=== PATIENT | female | born 1950 | race Two or more races ===

== ENCOUNTER 2019-10-28 08:33 | Inpatient (IN) | payer OTHER, MEDICAID ==
[~2019-10-28] VITALS: Ht 154.9 cm; Wt 86.1 kg
[2019-10-28] MEDS ORDERED: cloNIDine HCL 0.1 MG TAB PO ONE (09:00)
[2019-10-28] MEDS ORDERED: NITROGLYCERIN 50MG/250ML 250 ML IV ONE (09:29)
[2019-10-28 09:54] LABS: Basophils # (auto) 0 10 ^3/uL (0-0.2); Basophils % (auto) 0.4 % (0.0-2.0); Eosinophils # (auto) 0 10 ^3/uL (0-0.8); Eosinophils % (auto) 0.7 % (0.0-7.0); Hemoglobin 16.1 g/dL (12.2-16.2); Lymphocytes # (auto) 1.4 10 ^3/uL (0.4-5.4); Lymphocytes % (auto) 26.7 % (10.0-50.0); Mean Corpuscular Hemoglobin 30.9 pg (28.0-32.0); Mean Corpuscular Hgb Conc. 33.5 g/dL (32.0-36.0); Mean Corpuscular Volume 92.3 fL (80.0-100.0); Monocytes # (auto) 0.4 10 ^3/uL (0-1.3); Monocytes % (auto) 6.8 % (0.0-12.0); Neutrophils # (auto) 3.5 10 ^3/uL (1.6-8.6); Neutrophils % (auto) 65.4 % (37.0-80.0); Nucleated Red Blood Cells % 0.2 %; Platelet Count (auto) 173 10^3/uL (140-450); Red Blood Cells 5.21 10^6/uL (4.0-5.20); Red Cell Distribution Width 13.6 % (11.8-14.3); White Blood Cell 5.4 10^3/uL (4.4-10.8)
[2019-10-28 10:08] LABS: Albumin 4.3 g/dL (3.4-5.0); Calcium 9.2 mg/dL (8.5-10.1); Potassium 3.6 mmol/L (3.5-5.1)
[2019-10-28 10:10] LABS: INR 1.02 (0.9-1.15); Partial Thromboplastin Time 27.9 sec (23.64-32.05)
[2019-10-28 10:15] LABS: BUN/Creatinine Ratio 14.9; Bilirubin, Total 0.5 mg/dL (0.2-1.0)
[2019-10-28] MEDS ORDERED: MORPHINE SULF INJ 2 MG/ML SYRINGE 1ML IV PRN (11:00)
[2019-10-28] MEDS ORDERED: NITROGLYCERIN 0.4 MG SL TAB SL PRN (11:00)
[2019-10-28] MEDS ORDERED: ACETAMINOPHEN 500 MG TAB PO PRN (11:15)
[2019-10-28] MEDS ORDERED: hydrALAZINE HCL 20 MG/ML VL IV PRN ×2 (11:15)
[2019-10-28] MEDS ORDERED: LACTULOSE 20Gm/30ML SOLN PO PRN (11:15)
[2019-10-28] MEDS ORDERED: METO25TA5 PO (12:47)
[2019-10-28] MEDS ORDERED: MELO1TAB73 PO (12:47)
[2019-10-28] MEDS ORDERED: LISI-648 PO (12:47)
[2019-10-28] MEDS ORDERED: TRAZ50TA2 PO (12:47)
[2019-10-28] MEDS ORDERED: BACL10TA PO (12:47)
[2019-10-28] MEDS ORDERED: OME20T PO (12:47)
[2019-10-28] MEDS ORDERED: LEVO125T7 PO (12:47)
[2019-10-28] MEDS ORDERED: ATOR10TA52 PO (12:47)
[2019-10-28] MEDS ORDERED: HYDR-3682 PO (12:47)
[2019-10-28] MEDS ORDERED: CHOL1TAB16 PO (13:10)
[2019-10-28] MEDS ORDERED: SODIUM CHLORIDE 0.9% 500 ML IV ONE (15:45)
[2019-10-28] MEDS: SODIUM CHLORIDE 0.9% 1,000 ML IV SCH (15:55)
--- NOTE | 2019-10-28 17:25 | NUR ---
Telemetry admit from [facility] admitted to Telemetry unit after SBAR received. Patient oriented to BLU HEATON, primary RN, unit, room, bed, and unit policies regarding patient care and visiting hours. Patient now on continuous telemetry monitoring, tele box # [29 ] and telemetry reading on arrival to unit is [SB 46]. Patient is alert and awake laying in bed in semi-fowlers position. Pt is on room air with even and unlabored respirations. Bed is in lowest position, wheels are locked, side rails up x2, and call light is within reach. Pt is still C/O weakness, occasionally dizziness, and blurry vision in left eye. Current neuro consult pending. Pt weighed by bed scale and encouraged to call if they need something. All questions and concerns addressed, patient verbalized understanding. Will continue to monitor q1h and PRN.
[2019-10-28 17:38] VITALS: BP 117/61
[2019-10-28] MEDS: traMADol HCL 50 MG TAB PO PRN (17:57)
--- NOTE | 2019-10-28 19:15 | NUR ---
Report Given Patient awake and alert. No S/S of distress/SOB or pain at this time. Care endorsed to ELLEN Melgoza RN.
--- NOTE | 2019-10-28 19:25 | NUR ---
Opening Shift Note Assumed care of patient, awake and alert X4. No S/S of distress/SOB or pain reported at this time. IV patent and benign to left FA, Instructed on POC and to call for assist PRN, call light within reach, bed alarm activated, pt instructed to call for help when ambulating to bathroom, to assess gait, pt verbalized understanding, will continue to monitor for changes Q1hr and PRN.
[2019-10-28 19:37] LABS: Magnesium 2.3 mg/dL (1.6-2.6)
[2019-10-28 20:00] VITALS: BP 127/68
[2019-10-28] MEDS ORDERED: ZOLPIDEM TARTRATE 5 MG TAB PO PRN (21:30)
[2019-10-28] MEDS ORDERED: LORazepam 2MG/ML-1ML VIAL IV PRN (21:30)
[2019-10-28 22:00] VITALS: BP 127/68
[2019-10-28] MEDS ORDERED: PRAMIPEXOLE DIHYDROCHLORIDE MO 0.25 MG TAB PO SCH (22:00)
[2019-10-28] MEDS ORDERED: ATORVASTATIN 20 MG TAB PO SCH (22:00)
[2019-10-28] MEDS: ATORVASTATIN 20 MG TAB PO SCH (22:00)
[2019-10-28 22:37] LABS: % Iron Saturation 40.1 % (15-50)
--- NOTE | 2019-10-28 23:15 | NUR ---
AMBULATION PT ASSISTED TO BATHROOM, MINIMAL ASSIST PROVIDED, GAIT SLIGHTLY UNSTEADY, ASSISTED BACK TO BED, BED ALARM ACTIVATED AND CALL LIGHT WITHIN REACH, CONT CARE
--- NOTE | 2019-10-28 23:36 | NUR ---
Respiratory note: PT TOOK OFF CPAP AND SAID THAT SHE REFUSED TO WEAR IT THAT SHE CAN NOT SLEEP. PT IS ON ROOM AIR SPO2 96%. NO S/S OF SOB OR RESPIRATORY DISTRESS. WILL CONTINUE TO MONITOR
[2019-10-29] MEDS ORDERED: TEMAZEPAM 15 MG CAP PO ONE (01:00)
[2019-10-29] MEDS: ATORVASTATIN 20 MG TAB PO SCH ×2 (01:31→01:32)
[2019-10-29] MEDS: SODIUM CHLORIDE 0.9% 1,000 ML IV SCH ×2 (01:45→10:56)
[2019-10-29] MEDS: ASPIRIN-DIPYRIDAMOLE (25/200MG) CAPSULE PO SCH ×2 (01:52→10:00)
--- NOTE | 2019-10-29 03:02 | NUR ---
PT ROUNDS PT CURRENTLY SLEEPING, BREATHING EVEN AND UNLABORED, ON ROOM AIR, NO DISTRESS NOTED, EASILY AWAKENED VIA VERBA; STIMULI, BED ALARM ON AND CALL LIGHT WITHIN REACH
[2019-10-29 05:15] VITALS: BP 106/52
[2019-10-29] MEDS: PROMETHAZINE HCL 25 MG/ML 1ML IV PRN ×2 (06:06→10:52)
[2019-10-29] MEDS: traMADol HCL 50 MG TAB PO PRN ×2 (06:07→10:53)
--- NOTE | 2019-10-29 07:02 | NUR ---
HOSPITALIST PAGED PATIENT WITH PERSISTENT NAUSEA AND VOMITING AND CONTINUED HEADACHE RATED LEVEL 10/10. DESPITE BEING GIVEN PRN MEDICATIONS FOR PAIN AND NAUSEA.
--- NOTE | 2019-10-29 07:27 | NUR ---
HOSPITALIST RETURNS CALL SPOKE TO HOSPITALIST LUCY. INFORMED HIM OF PATIENT'S PERSISTENT NAUSEA AND VOMITING DESPITE PRN NAUSEA MEDICATION. INFORMED OF 10/ HEADACHE PAIN. ORDER RECEIVED FOR PHENERGAN 12.5MG IV X ONE NOW, ORDER READ BACK AND VERIFIED.
[2019-10-29 07:28] LABS: Cholesterol 163 mg/dL (< 200); HDL Cholesterol 31 mg/dL (40-59); LDL Cholesterol 104 mg/dL (< 100); Triglycerides 204 mg/dL (< 150)
[2019-10-29] MEDS ORDERED: PROMETHAZINE HCL 25 MG/ML 1ML IV ONE (07:30)
[2019-10-29 08:15] VITALS: BP 131/65
[2019-10-29 09:00] VITALS: BP 132/68
[2019-10-29] MEDS ORDERED: ASPirin 81 mg TAB PO SCH (10:00)
[2019-10-29] MEDS ORDERED: LISINOPRIL 20 MG TAB PO SCH (10:00)
[2019-10-29] MEDS ORDERED: amLODIPine BESYLATE 5 MG TAB PO SCH (10:00)
[2019-10-29] MEDS ORDERED: ENOXAPARIN SOD 40 MG/0.4 ML SYRINGE SC SCH (10:00)
--- NOTE | 2019-10-29 11:30 | NUR ---
Dr. Lester Lozano called. made aware patient at MRI at this time, patient still nauseous, w/ episodes of vomiting, stated Ultram does not help much w/ the headache. Dr. Lozano said the headache is migraine related, ordered to follow up w/ Dr. Hwang (Neuro) if he will prescribe medication and test for migraine. Dr. Lozano plans to discharge the patient if (-) MRI.
[2019-10-29 11:33] LABS: Urine Bacteria NONE SEEN /hpf (None Seen); Urine Blood Negative /uL (Negative); Urine Specific Gravity 1.011 (1.001-1.035); Urine WBC 1 /hpf (0 - 5)
--- NOTE | 2019-10-29 11:49 | NUR ---
Dr. Hwang called back. made aware Lester Sierra called asking if he will prescribe medication and additional test for migraine; Dr. Lozano plans to d/c the patient today if (-) MRI results. Dr. Hwang said he has no new orders for migraine, he will come over tonight to see the patient again for Neurology.
[2019-10-29 11:52] LABS: Amphetamine Screen, Urine NEGATIVE (NEGATIVE); Barbiturate Scree,Urine NEGATIVE (NEGATIVE); Benzodiazephine Screen, Urine NEGATIVE (NEGATIVE); Cannabinoid Screen, Urine NEGATIVE (NEGATIVE); Cocaine Screen, Urine NEGATIVE (NEGATIVE); Opiate Scree,Urine NEGATIVE (NEGATIVE); Phencyclidine Screen, Urine NEGATIVE (NEGATIVE)
[2019-10-29 11:54] LABS: Alcohol, Urine < 3.0 mg/dL (0-10)
--- NOTE | 2019-10-29 11:55 | NUR ---
Pharmacy called that Aggrenox Cap not available.
--- NOTE | 2019-10-29 11:55 | NUR ---
Patient back to room from MRI.
[2019-10-29 13:00] VITALS: BP 131/65
--- NOTE | 2019-10-29 14:00 | NUR ---
Lester Sierra ordered Ibuprofen 800 mg PO Q8 PRN for pain.
--- NOTE | 2019-10-29 14:00 | NUR ---
Dr. Lester Lozano came over. made aware Dr. Hwang said he will come over tonight to see the patient, he cannot prescribe medication or test for migraine; PT recommends home health and walker. Dr. Lozano read the MRI results (-). MD to put in discharge orders, Management Trainee Consult for home health and walker. Dr. Lozano ordered to d/c the patient tonight when Dr. Hwang clears the patient as per Neurology perspective.
[2019-10-29] MEDS ORDERED: traMADol HCL 50 MG TAB PO PRN (14:15)
[2019-10-29] MEDS ORDERED: IBUPROFEN 800 MG TAB PO PRN (14:15)
--- NOTE | 2019-10-29 16:50 | NUR ---
RIAN Merino called back, made aware patient has [facility] for home health.
[2019-10-29 17:00] VITALS: BP 112/51
--- NOTE | 2019-10-29 17:00 | NUR ---
Dr. Hwang came over. said patient can be discharged today as per Neurology perspective.
[2019-10-29] MEDS ORDERED: ASPI-394 PO (18:02)
[2019-10-29] MEDS ORDERED: LISI-646 PO (18:02)
[2019-10-29] MEDS ORDERED: IBUP800T24 PO (18:02)
[2019-10-29] MEDS ORDERED: AML5T PO (18:02)
[2019-10-29] MEDS ORDERED: SIMV10TA84 PO (18:02)
[2019-10-29 18:19] VITALS: BP 131/65
--- NOTE | 2019-10-29 19:10 | NUR ---
Discharge instructions given as ordered. Encourage to follow up with PMD as instructed. All questions and concerns addressed. Patient verbalized understanding. Medication reconciliation form completed and copy given to patient. IV removed with catheter intact, pressure dressing applied. Telemetry unit returned to ICU. Patient taken to vehicle via wheelchair with all personal belongings, accompanied by staff, family member waiting at the Main Lobby. No distress noted at time of departure.
[2019-10-30] MEDS ORDERED: ASPirin-EC 81 mg tab PO SCH (10:00)
--- NOTE | 2019-11-01 10:58 | NUR ---
[employer] Did not received a page or call regarding social service consult for home health safety evaluation. Faxed clinical evaluation to [facility] 11/01/2019.
== END 2019-10-29 19:09 | disposition home health service (06) | DRG 103 ==
LOC: ER 08:33 → TELE 08:34 → TELE-CENTR 17:32
PROVIDERS: ADMIT Internal Medicine; ATTEND Internal Medicine
DX: G43.909 Migraine, unspecified, not intractable, without status migrainosus (principal); G45.9 Transient cerebral ischemic attack, unspecified; I69.954 Hemiplegia and hemiparesis following unspecified cerebrovascular disease affecting left non-dominant side; I16.1 Hypertensive emergency; F17.210 Nicotine dependence, cigarettes, uncomplicated; G47.10 Hypersomnia, unspecified; I10 Essential (primary) hypertension; E78.5 Hyperlipidemia, unspecified; E66.9 Obesity, unspecified; F32.9 Major depressive disorder, single episode, unspecified; G25.81 Restless legs syndrome; G47.00 Insomnia, unspecified; G89.29 Other chronic pain; M54.9 Dorsalgia, unspecified; K21.9 Gastro-esophageal reflux disease without esophagitis; E03.9 Hypothyroidism, unspecified; Z88.2 Allergy status to sulfonamides; Z79.899 Other long term (current) drug therapy; Z82.49 Family history of ischemic heart disease and other diseases of the circulatory system; Z68.33 Body mass index [BMI] 33.0-33.9, adult
CPT/HCPCS: 36415; 70450; 70545; 70551; 71045; 80053; 80061; 80307; 81001; 82550; 82728; 83540; 83550; 83735; 83880; 84484; 85025; 85610; 85652; 85730; 93005; 93306; 93886; 99291; G0378